=== PATIENT | male | born 1990 ===

== ENCOUNTER 2024-12-22 03:49 | Emergency (ER) | payer SELFPAY ==
[2024-12-22] MEDS: Bacitracin Oint 1 GM U/D Packet TOP ONE (04:53)
== END 2024-12-22 05:14 | disposition home or self-care (01) ==
LOC: JP.ED 03:49
DX: T22.211A Burn of second degree of right forearm, initial encounter (principal); T20.06XA Burn of unspecified degree of forehead and cheek, initial encounter; T20.04XA Burn of unspecified degree of nose (septum), initial encounter; T20.07XA Burn of unspecified degree of neck, initial encounter; T20.011A Burn of unspecified degree of right ear [any part, except ear drum], initial encounter; X08.8XXA Exposure to other specified smoke, fire and flames, initial encounter
CPT/HCPCS: 16020; 99283-25